=== PATIENT | male | born 1980 | race Native Hawaiian/Other Pacific Islander ===

== ENCOUNTER 2019-10-11 17:29 | Emergency (ER) | payer OTHER ==
[~2019-10-11] VITALS: Ht 175.3 cm; Wt 103.1 kg
[2019-10-11 18:34] LABS: PLATELET COUNT 200 K/uL (142-355)
[2019-10-11 18:55] LABS: POTASSIUM 3.9 mmol/L (3.6-5.2)
[2019-10-11 19:25] LABS: PARTIAL THROMBOPLASTIN TIME 50.3 SECONDS (24.5-33.6)
[2019-10-11 20:40] VITALS: BP 135/97; TEMP 98.3
== END 2019-10-11 20:40 ==
LOC: ED 17:33
PROVIDERS: Hospitalist
DX: G62.89 Other specified polyneuropathies (principal); Z86.718 Personal history of other venous thrombosis and embolism; Z79.01 Long term (current) use of anticoagulants
CPT/HCPCS: 36415; 80048; 85027; 85379; 85610; 85730; 99283